=== PATIENT | male | born 1985 | race American Indian/Alaskan Native ===

== ENCOUNTER 2020-08-07 22:32 | Emergency (ER) | payer SELFPAY ==
[2020-08-08 00:07] VITALS: BP 145/80
--- NOTE | 2020-08-08 00:55 | XRay Report ---
CLINICAL DATA: injury TECHNICAL DATA: AP internal, AP external, and Y views were obtained of the shoulder. FINDINGS: There is no acute fracture. The glenoid fossa humeral head articulation is normal. There is no acromi oclavicular joint widening or offset. The coracoclavicular distance is normal. There are no significa nt degenerative changes. IMPRESSION: No acute radiographic abnormality. Signer Name: Luigi Barcenas MD Signed: 08/08/2020 12:50 AM Workstation Name: [id number]
[2020-08-08] MEDS ORDERED: ONDANSETRON 4 MG ODT TAB PO ONE (01:28)
[2020-08-08] MEDS ORDERED: oxyCODONE /ACETAMINOPHEN 5-325MG TAB PO ONE (01:28)
[2020-08-08] MEDS ORDERED: IBUPROFEN 600 MG TAB PO ONE (01:28)
--- NOTE | 2020-08-08 01:29 | Emergency Department Report ---
ED Upper Extremity Inj HPI - General Chief Complaint: Shoulder Injury Stated Complaint: RT SHOULDER INJURY Source: patient Mode of arrival: Ambulatory Limitations: No Limitations - History of Present Illness Initial Comments: Patient is a 35-year-old -Turkmen male with no past medical history presents to the ED with complaint of acute onset persistent severe right shoul rut pain after he twisted his right shoulder while performing weightlifting at a gymnasium 24 hours ago. Patient states that the metallic weight slipped off his hand and fell down but did not hit his right shoulder and as a result he twisted his right shoulder and felt "a pop" sound. Patient states that the pain of the right shoulder has been persistent and worse with any active range of motion such that he is unable to extend, abduct or abduct the right shoulder because of severe pain. Patient denies neck pain, head or neck injuries, dizziness, syncope, nausea and vomiting, chest pain, back pain, numbness and tingling or weakness of right arm or fall. MD Complaint: Injury to:: right, shoulder (PAIN) -: Sudden, hour(s) (24) Other Extremity Injury: Shoulder: Right (Severe pain) Other Injuries: none Place: home (at the Gymnasium) Improves With: rest Worsens With: movement of extremity Context: direct blow, injury, other (twisted the right shoulder during weight- lifting exercise) Associated Symptoms: denies other symptoms. denies: weakness, numbness, neck pain, suspects foreign body, nausea/vomiting, heard/felt popping sensat - Related Data Previous Rx's Medication Instructions Recorded Last Taken Type Baclofen 20 mg PO Q12H PRN #24 tablet 08/08/20 Unknown Rx Ibuprofen [Motrin] 800 mg PO Q8HR PRN #30 tablet 08/08/20 Unknown Rx traMADoL [Ultram] 50 mg PO Q6HR PRN #12 tablet 08/08/20 Unknown Rx Allergies Allergy/AdvReac Type Severity Reaction Status Date / Time codeine Allergy Swelling Verified 08/08/20 00:07 Sulfa (Sulfonamide Allergy Swelling Verified 08/08/20 00:07 Antibiotics) ED Review of Systems ROS: Stated complaint: RT SHOULDER INJURY Other details as noted in HPI Constitutional: denies: chills, fever Eyes: denies: eye pain, eye discharge, vision change ENT: denies: ear pain, throat pain Respiratory: denies: cough, shortness of breath, wheezing Cardiovascular: denies: chest pain, palpitations Endocrine: no symptoms reported Gastrointestinal: denies: abdominal pain, nausea, diarrhea Genitourinary: denies: urgency, dysuria Musculoskeletal: arthralgia (right shoulder pain). denies: back pain, joint swelling Skin: denies: rash, lesions Neurological: denies: headache, weakness, paresthesias Psychiatric: denies: anxiety, depression Hematological/Lymphatic: denies: easy bleeding, easy bruising ED Past Medical Hx - Past Medical History Previous Medical History?: No - Surgical History Past Surgical History?: No - Social History Smoking Status: Never Smoker - Medications Home Medications: Home Medications Medication Instructions Recorded Confirmed Last Taken Type Baclofen 20 mg PO Q12H PRN #24 tablet 08/08/20 Unknown Rx Ibuprofen [Motrin] 800 mg PO Q8HR PRN #30 tablet 08/08/20 Unknown Rx traMADoL [Ultram] 50 mg PO Q6HR PRN #12 tablet 08/08/20 Unknown Rx ED Physical Exam - General Limitations: No Limitations General appearance: alert, in no apparent distress - Head Head exam: Present: atraumatic, normocephalic, normal inspection - Eye Eye exam: Present: normal appearance, PERRL, EOMI Pupils: Present: normal accommodation - ENT ENT exam: Present: normal exam, normal orophraynx, mucous membranes moist, TM's normal bilaterally, normal external ear exam - Neck Neck exam: Present: normal inspection, full ROM. Absent: tenderness, lymphadenopathy - Respiratory Respiratory exam: Present: normal lung sounds bilaterally. Absent: respiratory distress, wheezes, rales, stridor, chest wall tenderness, accessory muscle use, decreased breath sounds, prolonged expiratory - Cardiovascular Cardiovascular Exam: Present: regular rate, normal rhythm, normal heart sounds. Absent: systolic murmur, diastolic murmur, rubs, gallop - GI/Abdominal GI/Abdominal exam: Present: soft, normal bowel sounds. Absent: tenderness, guarding, rebound, hyperactive bowel sounds - Extremities Exam Extremities exam: Present: normal inspection, tenderness (Palpable severe right shoulder tenderness with limited range of motion due to pain), normal capillary refill. Absent: full ROM (Limited range of motion of right shoulder due to his pain), pedal edema, joint swelling, calf tenderness - Back Exam Back exam: Present: normal inspection, full ROM. Absent: tenderness, CVA tenderness (R), CVA tenderness (L), muscle spasm, paraspinal tenderness, vertebral tenderness - Neurological Exam Neurological exam: Present: alert, oriented X3, CN II-XII intact, normal gait, reflexes normal - Psychiatric Psychiatric exam: Present: normal affect, normal mood - Skin Skin exam: Present: warm, dry, intact, normal color. Absent: rash ED Course Vital Signs 08/08/20 00:04 Temperature 98.6 F Pulse Rate 64 Respiratory 16 Rate Blood Pressure 145/80 O2 Sat by Pulse 100 Oximetry ED Medical Decision Making - Radiology Data Radiology results: report reviewed, image reviewed [facility] [address] [place] [address] XRay Report Signed Patient: KRIS SINHA MR#: [id number] 96 : 1985 Acct:[id number] Age/Sex: 35 / M ADM Date: 08/07/20 Loc: ED Attending Dr: Ordering Physician: THO TRINH MD Date of Service: 08/08/20 Procedure(s): XR shoulder 2+V RT Accession Number(s): [id number] cc: ED MD GAYATHRI Fluoro Time In Minutes: CLINICAL DATA: injury TECHNICAL DATA: AP internal, AP external, and Y views were obtained of the shoulder. FINDINGS: There is no acute fracture. The glenoid fossa humeral head articulation is normal. There is no acromioclavicular joint widening or offset. The coracoclavicular distance is normal. There are no significant degenerative changes. IMPRESSION: No acute radiographic abnormality. Signer Name: Luigi Barcenas MD Signed: 08/08/2020 12:50 AM Workstation Name: [id number] Transcribed By: WG Dictated By: Luigi Barcenas MD Electronically Authenticated By: Luigi Barcenas MD Signed Date/Time: 08/08/2049 DD/ TD/TT: - Medical Decision Making This is a 35-year-old -Turkmen male with no past medical history presents to the ED with complaint of acute onset persistent severe right shoulder pain after he twisted his right shoulder while performing weightlifting at a gymnasium 24 hours ago. Patient states that the metallic weight slipped off his hand and fell down but did not hit his right shoulder and as a result he twisted his right shoulder and felt "a pop" sound. Patient states that the pain of the right shoulder has been persistent and worse with any active range of motion such that he is unable to extend, abduct or abduct the right shoulder because of severe pain. In the ED, patient is alert and oriented x3 and is not in any distress but appears to be in significant pain, and is hemodynamically stable. Patient was treated for pain in the ED and right shoulder x-ray showed no acute fractures or subluxations. Patient shoulder was immobilized with an arm sling. On reevaluation, patient's pain is moderately controlled. Based on the history and physical exam findings, as well as imaging report, the patient's injuries are likely musculoskeletal but tender in injury cannot be ruled out. Patient was therefore discharged home on pain medications and given a referral to the orthopedic surgeon Dr. Fernando for follow-up. Patient was advised to contact Dr. Fernando's office first thing in the morning on Sunday, August 10, 2020 to schedule a follow-up appointment for further evaluation. Patient was otherwise advised return to the ED immediately if symptoms get worse. - Differential Diagnosis Shoulder fracture; shoulder sprain; shoulder muscle strain; tendon injury Critical care attestation.: If time is entered above; I have spent that time in minutes in the direct care of this critically ill patient, excluding procedure time. ED Disposition Clinical Impression: Sprain of right shoulder Qualifiers: Encounter type: initial encounter Shoulder sprain type: unspecified sprain Qualified Code(s): S43.401A - Unspecified sprain of right shoulder joint, initial encounter Muscle strain of right shoulder Qualifiers: Encounter type: initial encounter Qualified Code(s): S46.911A - Strain of unspecified muscle, fascia and tendon at shoulder and upper arm level, right arm, initial encounter Disposition: - TO HOME OR SELFCARE Is pt being admited?: No Does the pt Need Aspirin: No Condition: Stable Instructions: Muscle Strain, [id number], Shoulder Sprain Additional Instructions: The right shoulder x-ray showed no acute fractures or subluxations. Based on the mechanism of injury, it is unlikely to determine whether there is a tendon injury based on the x-ray report. Therefore take medications with food, drink plenty of fluids and follow-up with your orthopedic surgeon Dr. Fernando for further evaluation. Contact Dr. Fernando's office first thing in the morning on Monday, August 10, 2020 to schedule a follow-up appointment. Prescriptions: Baclofen 20 mg PO Q12H PRN #24 tablet PRN Reason: Muscle Spasm Ibuprofen [Motrin] 800 mg PO Q8HR PRN #30 tablet PRN Reason: Pain , Severe (7-10) traMADoL [Ultram] 50 mg PO Q6HR PRN #12 tablet PRN Reason: Pain Referrals: JITENDRA FERNANDO MD [Staff Physician] - 3-5 Days Forms: Work/School Release Form(ED) Time of Disposition: 01:30 Print Language: DIVEHI
== END 2020-08-08 01:59 | disposition home or self-care (01) ==
LOC: ED 22:32
DX: S43.491A Other sprain of right shoulder joint, initial encounter (principal); S46.911A Strain of unspecified muscle, fascia and tendon at shoulder and upper arm level, right arm, initial encounter; Z79.899 Other long term (current) drug therapy; X50.0XXA Overexertion from strenuous movement or load, initial encounter; Y93.43 Activity, gymnastics; Y92.89 Other specified places as the place of occurrence of the external cause; Y99.8 Other external cause status
CPT/HCPCS: 99284; Q0162